=== PATIENT | male | born 1985 | race Caucasian/White ===

== ENCOUNTER 2018-11-10 01:50 | Emergency (ER) | payer BC ==
[2018-11-10 01:57] VITALS: BP 149/87
--- NOTE | 2018-11-10 02:40 | RADIOLOGY REPORT (SQ) ---
EXAM DESCRIPTION: XR SHOULDER 2 OR MORE VIEWS COMPLETED DATE/TME: 11/10/2018 00:00 CLINICAL HISTORY: 33 years, Male, shoulder pain COMPARISON: None. NUMBER OF VIEWS: 3 TECHNIQUE: 3 view right shoulder LIMITATIONS: None. FINDINGS: Negative for fracture or dislocation. Joint spaces are preserved IMPRESSION: Negative exam copyright 2010 [employer]- All Rights Reserved
[2018-11-10] MEDS ORDERED: METHOCARBAMOL 500 MG TABLET PO ONE (04:09)
--- NOTE | 2018-11-10 05:27 | ER Document Report ---
HPI - HPI Time Seen by Provider: 11/10/18 03:41 Pain Level: 4 Context: Patient is a 33-year-old male who presents to the emergency department with a chief complaint right shoulder pain. He states that he has not done anything in particular, but he works for [employer] and he does lifting, pulling, and pushing all day and his job. About a month ago he has noticed that he felt tenderness in his right shoulder and it is now to the point to where he does not sleep well at night. Laying down flat makes it worse. He also has been taking ibuprofen and Tylenol to help with the pain, but has not had relief. He did go see his primary care provider on Wednesday and was given prednisone for bursitis. He states that it has not gotten better. - CONSTITUTIONAL Constitutional: DENIES: Fever, Chills - EENT EENT: DENIES: Sore Throat, Ear Pain - NEURO Neurology: DENIES: Headache, Weakness - CARDIOVASCULAR Cardiovascular: DENIES: Chest pain - RESPIRATORY Respiratory: DENIES: Trouble Breathing, Coughing - GASTROINTESTINAL Gastrointestinal: DENIES: Abdominal Pain - MUSCULOSKELETAL Musculoskeletal: REPORTS: Extremity pain - right shoulder. DENIES: Back Pain, Neck Pain, Swelling - DERM Skin Color: Normal Skin Problems: None Past Medical History - General Information source: Patient - Social History Smoking Status: Unknown if Ever Smoked Family History: Reviewed & Not Pertinent Patient has suicidal ideation: No Patient has homicidal ideation: No - Past Medical History Cardiac Medical History: Denies: Hx Coronary Artery Disease, Hx Heart Attack, Hx Hypertension Pulmonary Medical History: Denies: Hx Asthma, Hx Bronchitis, Hx COPD, Hx Pneumonia Neurological Medical History: Denies: Hx Cerebrovascular Accident, Hx Seizures Renal/ Medical History: Denies: Hx Peritoneal Dialysis Musculoskeletal Medical History: Denies Hx Arthritis - Immunizations Hx Diphtheria, Pertussis, Tetanus Vaccination: Yes Hx Pneumococcal Vaccination: 05/31/14 Vertical Provider Document - CONSTITUTIONAL Agree With Documented VS: Yes Exam Limitations: No Limitations General Appearance: No Apparent Distress - INFECTION CONTROL TRAVEL OUTSIDE OF THE [place] IN LAST 30 DAYS: No - HEENT HEENT: Atraumatic, Normocephalic, PERRLA - NECK Neck: Normal Inspection - RESPIRATORY Respiratory: Breath Sounds Normal, No Respiratory Distress - CARDIOVASCULAR Cardiovascular: Regular Rate, Regular Rhythm Pulses: Normal: Radial - MUSCULOSKELETAL/EXTREMETIES Musculoskeletal/Extremeties: Tender - Right posterior shoulder, No Edema. negative: FROM - Limited right shoulder, but full range of motion everywhere else., Eccymosis - NEURO Level of Consciousness: Awake, Alert, Appropriate Motor/Sensory: No Motor Deficit, No Sensory Deficit, No Pronator Drift - DERM Integumentary: Warm, Dry, No Rash Course - Re-evaluation Re-evalutation: 11/10/18 04:00 Patient's shoulder x-ray is negative for any acute findings. The pain is mainly in the supraspinatus area. Radial pulses are 2+. Capillary refill less than 3 seconds. Patient states that he has some tingling in the area, which is most likely consistent with a possible pinched nerve. He is able to to move his arm, but has limited range of motion. I had a long conversation with the patient about options for an MRI. He is able to move his arm, but at this time he has decided that he will have his MRI done outpatient. He is strong, but he does have worsening of his pain on the pulling motion. I offered a sling, but he refused. He states it feels better when he moves his arm than when he keeps it still. He also be sent home with Robaxin. He states that helped him sleep, but the pain did not fully go away. I have a very low suspicion for a rupture. There may be a muscle tear, but will not be visualized unless patient has an MRIs. - Vital Signs Vital signs: Temp Pulse Resp BP Pulse Ox 97.9 F 81 16 149/87 H 97 11/10/18 01:54 11/10/18 01:54 11/10/18 01:54 11/10/18 01:54 11/10/18 01:54 Discharge - Discharge Clinical Impression: Right shoulder pain Qualifiers: Chronicity: acute Qualified Code(s): M25.511 - Pain in right shoulder Condition: Stable Disposition: HOME, SELF-CARE Additional Instructions: You were seen today in the emergency department for right shoulder pain. Your x-ray was normal. Please follow-up with your primary care provider to get an outpatient MRI, as this will definitively tell you what is wrong with your shoulder. Please continue to take ibuprofen 600 mg and acetaminophen 1000 mg every 6 hours for your pain. You have also been given Robaxin, a muscle relaxer. You can take 2 tablets every night at bedtime. Prescriptions: Methocarbamol [Robaxin 500 mg Tablet] 1,000 mg PO QHS #120 tablet Forms: Return to Work Referrals: OSMEL LAWSON MD [ASSOCIATE] - Follow up in 1 week PARVEEN GILMORE PA-C [Primary Care Provider] - Follow up tomorrow
[2018-11-10] MEDS ORDERED: TRAMADOL HCL 50 MG TABLET PO ONE (05:39)
== END 2018-11-10 05:44 | disposition home or self-care (01) ==
LOC: ER 01:50
DX: M25.511 Pain in right shoulder (principal); X50.9XXA Other and unspecified overexertion or strenuous movements or postures, initial encounter; Y99.0 Civilian activity done for income or pay
CPT/HCPCS: 99283